=== PATIENT | female | born 1955 | race Caucasian/White ===

== ENCOUNTER 2020-01-14 06:25 | Day surgery (SDC) | payer OTHER ==
[~2020-01-14] VITALS: Ht 165.1 cm; Wt 56.4 kg
[~2020-01-14 06:25] MED LIST: ALPR0.25 PO
[2020-01-14] MEDS ORDERED: TRANEXAMIC ACID 100 MG/ML, 10ML ONE ×2 (06:27)
[2020-01-14] MEDS ORDERED: ROPIvacaine/PF 0.5%, 30 ML ONE (06:27)
[2020-01-14] MEDS ORDERED: KETOROLAC 60 MG/2 ML ONE (06:27)
[2020-01-14] MEDS ORDERED: EPINEPHRINE 1 MG/ML, 1ML ONE (06:28)
[2020-01-14] MEDS ORDERED: SODIUM CHLORIDE 0.9% 50 ML ONE (06:28)
[2020-01-14] MEDS ORDERED: LACTATED RINGERS 1,000 ML IV SCH (06:54)
[2020-01-14] MEDS ORDERED: DIPHENHYDRAMINE 50 MG CAPSULE PO PRN (07:00)
[2020-01-14] MEDS ORDERED: ONDANSETRON 2MG/ML, 2ML IV PRN (07:00)
[2020-01-14] MEDS ORDERED: SENNA/DOCUSATE TABLET PO PRN (07:00)
[2020-01-14] MEDS ORDERED: CHLORHEXIDINE 15 ML UDC MM ONE (07:00)
[2020-01-14] MEDS ORDERED: ACETAMINOPHEN 650 MG/20.3 ML UDC PO PRN (07:00)
[2020-01-14] MEDS ORDERED: ZOLPIDEM 5MG TABLET PO PRN (07:00)
[2020-01-14] MEDS ORDERED: GABAPENTIN 300 MG CAPSULE PO ONE (07:00)
[2020-01-14] MEDS ORDERED: BISACODYL 10 MG SUPP PR PRN (07:00)
[2020-01-14] MEDS ORDERED: ACETAMINOPHEN 500 MG TABLET PO ONE (07:00)
[2020-01-14] MEDS ORDERED: ONDANSETRON ODT 4 MG PO PRN (07:00)
[2020-01-14] MEDS ORDERED: OXYcodone IR 5MG TABLET PO PRN (07:00)
[2020-01-14] MEDS ORDERED: HYDROcodone/APAP 5/325 TABLET PO PRN (07:00)
[2020-01-14] MEDS ORDERED: GABAPENTIN 300 MG CAPSULE ONE (07:26)
[2020-01-14] MEDS ORDERED: FENTANYL PF 250 MCG/5ML ONE (07:33)
[2020-01-14] MEDS ORDERED: MIDAZOLAM 1 MG/ML, 2ML ONE (07:33)
[2020-01-14] MEDS ORDERED: PROPOFOL 10 MG/ML, 20ML ONE (07:36)
[2020-01-14] MEDS ORDERED: CEFAZOLIN 1,000 MG ONE (07:36)
[2020-01-14] MEDS ORDERED: GLYCOPYRROLATE 0.2MG/1ML, 5ML ONE (07:36)
[2020-01-14] MEDS ORDERED: ONDANSETRON 2MG/ML, 2ML ONE (07:36)
[2020-01-14] MEDS ORDERED: DEXAMETHASONE 4 MG/ML, 1ML ONE (07:36)
[2020-01-14] MEDS ORDERED: ROCURONIUM 10MG/ML,5ML ONE (07:36)
[2020-01-14] MEDS ORDERED: NEOSTIGMINE 1 MG/ML, 10ML ONE (07:36)
[2020-01-14] MEDS ORDERED: MEPERIDINE/PF 25MG/0.5ML IVPush PRN (08:30)
[2020-01-14] MEDS ORDERED: PROMETHAZINE 25 MG/ML, 1ML IVPush PRN (08:30)
[2020-01-14] MEDS ORDERED: LABETALOL 5MG/ML, 20ML IV PRN (08:30)
[2020-01-14] MEDS ORDERED: HALOPERIDOL 5 MG/ML IV PRN (08:30)
[2020-01-14] MEDS ORDERED: OXYcodone 5 MG/5 ML ORAL.SOL UDC PO PRN (08:30)
[2020-01-14] MEDS ORDERED: HYDROmorphone 1 MG/ML, 1ML INJ IVPush PRN (08:30)
[2020-01-14] MEDS ORDERED: hydrALAzine 20 MG/ML, 1ML IV PRN (08:30)
[2020-01-14] MEDS ORDERED: morphine SULFATE 10 MG/ML, 1ML IVPush PRN (08:30)
[2020-01-14] MEDS ORDERED: MAGNESIUM HYDROXIDE 8%, 30ML UDC PO PRN (09:00)
[2020-01-14] MEDS ORDERED: DOCUSATE 100 MG CAPSULE PO SCH (09:00)
[2020-01-14] MEDS ORDERED: PROMETHAZINE 25 MG/ML, 1ML ONE (10:07)
[2020-01-14] MEDS ORDERED: FENTANYL PF 100 MCG/2ML ONE (10:08)
[2020-01-14] MEDS: FENTANYL PF 100 MCG/2ML IV PRN ×2 (10:11→10:30)
[2020-01-14] MEDS ORDERED: NS + 20MEQ KCL 1,000 ML IV SCH (11:30)
[2020-01-14 13:30] VITALS: BP 94/55
[2020-01-14] MEDS ORDERED: OXYC5TAB3 PO (15:58)
[2020-01-14] MEDS ORDERED: ASPI81TA45 PO (15:59)
[2020-01-14] MEDS ORDERED: TRAM50TA2 PO (15:59)
[2020-01-14] MEDS ORDERED: MELO7.5T31 PO (15:59)
[2020-01-14] MEDS ORDERED: CEFAZOLIN PMX 2GM/50ML 50 ML IVPB SCH (16:00)
[2020-01-14] MEDS ORDERED: ACETAMINOPHEN 325 MG TABLET PO PRN (16:30)
[2020-01-14 16:48] VITALS: BP 98/60
[2020-01-14] MEDS ORDERED: ASPIRIN 81 MG TABLET EC PO SCH (18:00)
[2020-01-15] MEDS ORDERED: DEXAMETHASONE 4 MG/ML, 1ML IVPush SCH (06:00)
== END 2020-01-14 17:10 | disposition home or self-care (01) ==
LOC: OUT 06:25 → 4NE 11:16 → OUT 17:10
PROVIDERS: ATTEND Orthopaedic Surgery
DX: M16.12 Unilateral primary osteoarthritis, left hip (principal); M25.752 Osteophyte, left hip; Z79.899 Other long term (current) drug therapy; Z87.891 Personal history of nicotine dependence; Z96.641 Presence of right artificial hip joint; Z82.61 Family history of arthritis; Z82.3 Family history of stroke
CPT/HCPCS: 27130; 72170; 73501; 97162; C1713; C1776; J0171; J0690; J1100; J1885; J2250; J2405; J2550; J2704; J2710; J2795; J3010; J7120; U0001; 76000; G0378